=== PATIENT | female | born 2000 | race Caucasian/White ===

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

== ENCOUNTER 2022-01-07 00:56 | Emergency (ER) | payer MEDICAID, SELFPAY ==
[2022-01-07 00:58] VITALS: BP 147/97; PULSE 88; RESP 18; TEMP 36.8; O2SAT 99; BMI 47.0
--- NOTE | 2022-01-07 01:28 | HMH.EDSKAF ---
ED Disposition Clinical Impression: Cellulitis Qualifiers: Site of cellulitis: extremity Site of cellulitis of extremity: axilla Laterality: right Qualified Code(s): L03.111 - Cellulitis of right axilla Disposition: Home, Self-Care Condition on Discharge: Good Instructions: DI for Cellulitis -- Adult Additional Instructions: use meds and see pcp for follow up Prescriptions: Minocycline HCl [Minocycline HCl 100mg Tab*] 100 mg PO BID #20 tab Transmission Status: Pending to [facility] #[id number] Referrals: Melo Bhagat MD [Primary Care Provider] - - Critical Care Critical Care Time: No Attestation: On 01/07/22, the high probability of a clinically significant, sudden or life threatening deterioration of the following system(s) required my full and direct attention, intervention and personal management. The time I documented below is in addition to time spent performing reported procedures but includes the following listed in this critical care notation. Medical Decision Making - Medical Records Medical records reviewed: Yes: I reviewed the patient's medical records. - Sukumar Inquiry Pt receiving controlled substance: No Vital Signs: 01/07/22 00:58 Temperature 98.2 F Temperature Source Oral Pulse Rate [Left Radial] 88 Respiratory Rate 18 Blood Pressure [Right Arm] 147/97 H Blood Pressure Mean [Right Arm] 113 Blood Pressure Source [Right Arm] Automatic Cuff Blood Pressure Position [Right Arm] Sitting 02 Sat by Pulse Oximetry 99 Oxygen Delivery Method Room Air - Lab Data Lab results reviewed: Yes: I reviewed the patient's lab results. Lab Results 01/07/22 01:20: WBC 12.8, RBC 4.99, Hgb 13.6, Hct 41.1, MCV 82.2, MCH 27.2, MCHC 33.1, RDW 15.2, Plt Count 379, MPV 8.1, Neut % (Auto) 64.2, Lymph % (Auto) 28.0, [place] % (Auto) 4.3, Eos % (Auto) 2.4, Baso % (Auto) 1.0, Neut # (Auto) 8.2 H, Lymph # (Auto) 3.6, [place] # (Auto) 0.6, Eos # (Auto) 0.3, Baso # (Auto) 0.1, ESR 15 01/07/22 01:20: Urine HCG, Qual Negative 01/07/22 01:20: Sodium 139, Potassium 3.8, Chloride 102, Carbon Dioxide 26, Anion Gap 14.8, BUN 14, Creatinine 0.60, Estimated Creat Clear 130, Estimated GFR 129, Est GFR ( Amer) 156, Glucose 100, Calcium 9.5, Total Bilirubin 0.4, AST 26, ALT 24, Alkaline Phosphatase 105, C-Reactive Protein 22.4 H, Total Protein 7.7, Albumin 4.5, Globulin 3.2, Albumin/Globulin Ratio 1.4 Result diagrams: 01/07/22 01:20 01/07/22 01:20 Orders (Tests/Meds): ED MEDICATIONS Generic Name Dose Route Start Last Admin Trade Name Freq PRN Reason Stop Dose Admin Clindamycin Phosphate 900 mg/ 106 mls @ 100 mls/hr 01/07/22 01:38 01/07/22 01:41 Sodium Chloride IV 01/07/22 02:41 100 mls/hr ONCE ONE Administration ORDERS Category Date Time Status C-Reactive Protein Stat Lab 01/07/22 01:20 Results Comprehensive Metabolic Panel Stat Lab 01/07/22 01:20 Results Procalcitonin Stat Lab 01/07/22 01:20 Results Medical Decision Narrative: has cellulitis and hx of mrsa Skin/Abscess/FB HPI - General Chief complaint: Skin/Abscess/Foreign Body Stated complaint: Knot under right arm hurting Time Seen by Provider: 01/07/22 01:28 Mode of Arrival: Ambulatory Source of Information: Patient, Medical Record Limitations: No Limitations Description of Symptoms (Recalled from ER Triage Doc. by RN): KNOT UNDER RIGHT ARM. PT STATES SHE WAS TREATED 1 MONTH AGO FOR SAME THING. IT RESOLVED AND HAS NOW RETURNED. - History of Present Illness HPI narrative: rt axilla has tender area but no drainage - hx of same in 11/20 and was mrsa - MD complaint: abscess/boil Onset (ago): day(s) Tetanus up to date: yes Location: RUE Severity: moderate Associated symptoms: denies other symptoms Treatments prior to arrival: none - Related Data Previous Rx's Medication Instructions Recorded Minocycline HCl [Minocycline HCl 100 mg PO BID #20 tab 01/07/22 100mg Tab*] Allergies Allergy/AdvRea
--- NOTE | 2022-01-07 01:30 | PC.NURSE ---
URINE COLLECTED AND SENT TO LAB
[2022-01-07 01:31] LABS: Basophils # 0.1 K/mm3 (0-0.2); Eosinophils # 0.3 K/mm3 (0.0-0.4); Eosinophils % 2.4 % (0.1-12.0); Hematocrit 41.1 % (37.0-47.0); Hemoglobin 13.6 g/dL (12.2-16.2); Lymphocytes # 3.6 K/mm3 (0.7-4.5); Mean Corpuscular HGB Conc 33.1 g/dL (31.8-35.4); Mean Corpuscular Hemoglobin 27.2 pg (27.0-31.2); Mean Corpuscular Volume 82.2 fl (81-99); Mean Platelet Volume 8.1 fl (7.4-10.4); Monocytes # 0.6 K/mm3 (0.1-1.0); Monocytes % 4.3 % (1.7-9.3); Neutrophils # 8.2 K/mm3 (1.8-7.8); Neutrophils % 64.2 % (37.0-80.0); Platelet Count 379 K/mm3 (142-424); Red Blood Count 4.99 M/mm3 (4.20-5.40); Red Cell Distribution Width 15.2 % (11.5-17.5); White Blood Count 12.8 K/mm3 (4.5-13.0)
[2022-01-07 01:35] LABS: Urine Pregnancy, HCG Qual. Negative (Negative)
[2022-01-07 01:43] LABS: Alanine Aminotransferase 24 U/L (12-78); Albumin Level 4.5 g/dl (3.5-5.0); Albumin/Globulin Ratio 1.4 (1.1-1.8); Alkaline Phosphatase 105 U/L (38-126); Anion Gap 14.8 mEq/L (5-15); Aspartate Amino Transferase 26 U/L (14-36); Bilirubin,Total 0.4 mg/dl (0.2-1.3); Blood Urea Nitrogen 14 mg/dl (7-17); Calcium 9.5 mg/dl (8.4-10.2); Carbon Dioxide 26 mmol/L (22.0-30.0); Chloride 102 mmol/L (98-107); Creatinine Clearance Estimated 130 mL/min (50-200); Estimated Glomerular Filt Rate 129 ml/min (>60); GFR (African American) 156 ML/MIN (>60); Globulin 3.2 g/dL (1.3-3.2); Glucose 100 mg/dl (74-100); Potassium 3.8 mmoL/L (3.5-5.1); Sodium 139 mmol/L (136-145); Total Protein,Serum 7.7 g/dl (6.3-8.2)
[2022-01-07 02:01] LABS: Erythrocyte Sedimentation Rate 15 mm/hr (0-20)
[2022-01-07 02:02] LABS: C-Reactive Protein 22.4 mg/L (0-4)
[2022-01-07 02:16] LABS: Procalcitonin 0.057 ng/mL (0.0-2.0)
[2022-01-07 02:23] VITALS: BP 139/81; PULSE 81; RESP 18; TEMP 36.8; O2SAT 99
[2022-01-07 02:31] VITALS: BP 143/76; PULSE 78; RESP 16; TEMP 36.6; O2SAT 99
== END 2022-01-07 02:45 | disposition home or self-care (01) ==
PROVIDERS: Emergency Provider Emergency Medicine; PCP Pediatrics
DX: L03.111 Cellulitis of right axilla (principal); J45.909 Unspecified asthma, uncomplicated
CPT/HCPCS: 80053; 81025; 84145; 85025; 85651; 86140; 96365; 99284

== ENCOUNTER 2022-01-14 16:03 | Emergency (ER) | payer MEDICAID, SELFPAY ==
--- NOTE | 2022-01-14 16:23 | HMH.EDUTC ---
[facility] [place] [facility] [place] Clinical Impression: Gastroenteritis Disposition: Home, Self-Care Condition on Discharge: Good Instructions: Viral Gastroenteritis, DI for Viral Gastroenteritis -- Adult, Ondansetron Additional Instructions: Drink plenty of fluids. Take tylenol or ibuprofen for pain or fever. Take the medications as directed. Follow up with your regular doctor. GO TO THE ER FOR ANY WORSENING SYMPTOMS Prescriptions: Ondansetron [Zofran 4mg ODT] 4 mg PO Q8HP PRN #20 tab PRN Reason: Nausea Transmission Status: Received by [facility] #[id number] Referrals: Melo Bhagat MD [Primary Care Provider] - Forms: Work/School Release Time of Disposition: 17:32 Medical Decision Making - Medical Records Medical records reviewed: No: I reviewed the patient's medical records. - Sukumar Inquiry Pt receiving controlled substance: No Vital Signs: 01/14/22 16:24 01/14/22 17:37 Temperature 97.9 F 97.9 F Temperature Source Oral Pulse Rate 95 H Pulse Rate [Left Radial] 111 H Respiratory Rate 16 16 Blood Pressure 135/80 Blood Pressure [Right Arm] 146/91 H Blood Pressure Mean [Right Arm] 109 02 Sat by Pulse Oximetry 96 [facility] [place] [facility] [place]PI - General Stated complaint: stomach,V&D Time Seen by Provider: 01/14/22 16:23 - History of Present Illness Provider Complaint: She states that she has had n/d for the past 1 days. She has not vomited, but she has had nausea and felt like she was going to. She denies any abdominal pain. - Related Data Previous Rx's Medication Instructions Recorded Minocycline HCl [Minocycline HCl 100 mg PO BID #20 tab 01/07/22 100mg Tab*] Ondansetron [Zofran 4mg ODT] 4 mg PO Q8HP PRN #20 tab 01/14/22 Allergies Allergy/AdvReac Type Severity Reaction Status Date / Time No Known Allergies Allergy Verified 01/14/22 16:27 [facility] History - Hepatitis A Screen Attestation statement:: This patient has been screened for Hepatitis A risk factors. I have reviewed the patient's past medical history: Yes Medical History: Reports:: Asthma Denies:: Cancer, Diabetes Mellitus Type 1, Diabetes Mellitus Type 2, MRSA, Seizures Other Medical History: Denies: Blood Transfusion Reaction Laterality Cases: Bilateral: Myringotomy (Ear Tubes) Other Surgeries: Yes: Other Amputation: No Fractures: Yes (FOOT) Comment: pilonidal cyst - Social History Smoking Status: Never smoker Alcohol Intake: never Substance Use Type: denies use Occupational Status: other Housing: house Household Members: family Family Hx:: No significant family history ROS Obtained: Yes All systems reviewed & no additional complaints - Constitutional Constitutional: Reports chills, Denies fever(s), Reports poor appetite, Reports malaise - Eyes Eyes: Denies eye discharge - ENT Ears, Nose, Mouth, and Throat: Denies dizziness, Denies otalgia, Denies sore throat - Cardiovascular Cardiovascular: Denies chest pain - Respiratory Respiratory: Denies chest congestion, Denies cough - Gastrointestinal Gastrointestingal: Reports: cramping, diarrhea, nausea. Denies: abdominal pain, constipation, vomiting - Musculoskeletal Musculoskeletal: Denies joint pain - Integumentary/Breasts Skin/Breast: Denies rash Physical Exam - General General appearance: alert, in no apparent distress - Head Head exam: atraumatic, normocephalic, normal inspection - Eye Eye exam: Present: normal appearance, PERRL, EOMI - ENT ENT exam: Present: normal exam, normal oropharynx, mucous membranes moist, TM's normal bilaterally, normal external ear exam - Neck Neck exam: Present: normal inspection, full ROM, trachea midline. Absent: meningismus, lymphadenopathy - Chest Chest inspection: Present: normal inspection, symmetric chest wall rise. Absent: tenderness - Respiratory Respiratory exam: Present: normal lung sounds bilaterally. Absent: respiratory distress - Cardiovascular Cardiovascul
[2022-01-14 16:24] VITALS: BP 146/91; PULSE 111; RESP 16; TEMP 36.6; O2SAT 96; BMI 38.2
[2022-01-14 17:37] VITALS: BP 135/80; PULSE 95; RESP 16; TEMP 36.6
== END 2022-01-14 17:37 | disposition home or self-care (01) ==
PROVIDERS: Emergency Provider Nurse Practitioner Family; PCP Pediatrics
DX: A08.4 Viral intestinal infection, unspecified (principal); J45.909 Unspecified asthma, uncomplicated; Z79.51 Long term (current) use of inhaled steroids
CPT/HCPCS: 99213; G0463

== ENCOUNTER 2022-02-04 12:28 | Emergency (ER) | payer MEDICAID, SELFPAY ==
[2022-02-04 12:30] VITALS: BP 138/83; PULSE 86; RESP 19; TEMP 36.8; O2SAT 98; BMI 39.9
--- NOTE | 2022-02-04 12:40 | HMH.EDUTC ---
[facility] [place] Disposition Clinical Impression: Otitis media Qualifiers: Otitis media type: unspecified Laterality: left Qualified Code(s): H66.92 - Otitis media, unspecified, left ear Disposition: Home, Self-Care Condition on Discharge: Good Instructions: Sinusitis, DI for Ear Pain-Adult Additional Instructions: *Monitor Temp, Over the counter Motrin or Tylenol as directed/as needed Tylenol every 4 hours and Motrin every 6 hours (as long as your family doctor has told you that you can take it) for fever or pain. and straight to ER if unable to lower temp less than 101.0 after medication given *Warm salt water gargles may help to soothe the throat *Throat Lozenges *Warm fluids like tea with honey may help to soothe the throat *Sleep elevated *Humidifier/Vaporizer Take medication as prescribed Return if needed Follow up IMMEDIATELY for new or worsening symptoms or no Noticeable improvement over the next 48-72 hours. 911 for difficulty breathing or swallowing Prescriptions: Albuterol Sulfate [Proventil-HFA 90mcg/puff Inh] 1 - 2 puffs IH Q6HP PRN #1 each PRN Reason: Shortness Of Breath Transmission Status: Pending to [facility] # Amoxicillin/Potassium Clav [Amox-Clav 875-125 mg Tablet] 1 tab PO BID #20 tab Transmission Status: Pending to [facility] # methylPREDNISolone [Medrol 4mg tab] 4 mg PO DIRECTED #21 tab Transmission Status: Pending to [facility] # Referrals: Melo Bhagat MD [Primary Care Provider] - As needed Time of Disposition: 12:52 Medical Decision Making - Sukumar Inquiry Pt receiving controlled substance: No Sukumar was queried for this patient: No Vital Signs: 02/04/22 12:30 Temperature 98.2 F Temperature Source Oral Pulse Rate [Right Brachial] 86 Respiratory Rate 19 Blood Pressure [Right Arm] 138/83 Blood Pressure Mean [Right Arm] 101 Blood Pressure Source [Right Arm] Automatic Cuff Blood Pressure Position [Right Arm] Sitting 02 Sat by Pulse Oximetry 98 Oxygen Delivery Method Room Air Medical Decision Narrative: Patient denies states that she just got off her period [facility] [place] HPI - General Stated complaint: chest congestion, cough, ear pain Time Seen by Provider: 02/04/22 12:40 Mode of Arrival: Ambulatory Source of Information: Patient Limitations: No Limitations Description of Symptoms (Recalled from Triage Doc. by RN): PATIENT C/O BILATERAL EAR PAIN, CHEST CONGESTION, AND WET COUGH WITH GREEN MUCOUS X 2 DAYS HEENT Symptoms (Recalled from RN notes): Yes Resp Symptoms (Recalled from RN notes): Yes Skin Symptoms (Recalled from RN notes): No MS Symptoms (Recalled from RN notes): No Functional Status (Recalled from RN notes): WNL - History of Present Illness Provider Complaint: Patient states that she has been having pain and pressure in both ears, sinus congestion and pressure with driangae in the back of her throat and chest congestion States that at times she is coughing up some mucous but thinks it is from her sinus drainage State that she also is out of her rescue inhaler wanting to see if she could get one - Related Data Previous Rx's Medication Instructions Recorded Albuterol Sulfate [Proventil-HFA 1 - 2 puffs IH Q6HP PRN #1 each 02/04/22 90mcg/puff Inh] Amoxicillin/Potassium Clav 1 tab PO BID #20 tab 02/04/22 [Amox-Clav 875-125 mg Tablet] methylPREDNISolone [Medrol 4mg 4 mg PO DIRECTED #21 tab 02/04/22 tab] Allergies Allergy/AdvReac Type Severity Reaction Status Date / Time No Known Allergies Allergy Verified 01/14/22 16:27 - Worker's Comp Is this a Worker's Comp case?: No [facility] History - Hepatitis A Screen Attestation statement:: This patient has been screened for Hepatitis A risk factors. I have reviewed the patient's past medical history: Yes Medical History: Reports:: Asthma Denies:: Cancer, Diabetes Mellitus Type 1, Diabetes Mellitus Type 2, MRSA, Seizures
[2022-02-04 12:50] VITALS: BP 138/83; PULSE 86; RESP 19; TEMP 36.8; O2SAT 98
== END 2022-02-04 12:55 | disposition home or self-care (01) ==
PROVIDERS: Emergency Provider Nurse Practitioner; PCP Pediatrics
DX: H66.92 Otitis media, unspecified, left ear (principal)
CPT/HCPCS: 99212; G0463

== ENCOUNTER 2022-02-13 03:28 | Emergency (ER) | payer MEDICAID, SELFPAY ==
--- NOTE | 2022-02-13 03:27 | ECG_ITS ---
APPROVED REPORT Exam: Resting ECG HR:137 bpm ECG Measurements Heart Rate 137 AXES PA 136 P 76 QRSd 86 QRS 85 QT 285 T 56 QTc 365 Conclusion SINUS TACHYCARDIA ABNORMAL RHYTHM ECG UNCONFIRMED REPORT Electronically signed by : Nicko Dawson MD 02/15/2022 18:04:09
[2022-02-13 03:29] VITALS: BP 149/92; PULSE 127; RESP 18; TEMP 37.9; O2SAT 96; BMI 41.5
[2022-02-13 03:34] VITALS: BMI 41.5
--- NOTE | 2022-02-13 03:35 | XR_ITS ---
PROCEDURE INFORMATION: Exam: XR Chest Exam date and time: 02/13/2022 3:36 AM Age: 21 years old Clinical indication: Shortness of breath; Patient HX: Exsposure to covid; Additional info: SOA TECHNIQUE: Imaging protocol: XR of the chest. Views: 2 views. COMPARISON: No relevant prior studies available. FINDINGS: Lungs: No focal airspace disease. Pleural spaces: Unremarkable. No pleural effusion. No pneumothorax. Heart/Mediastinum: Cardiomediastinal silhouette is within normal limits. Bones/joints: Unremarkable. IMPRESSION: No acute cardiopulmonary abnormality.
[2022-02-13 03:43] LABS: Basophils # 0.2 K/mm3 (0-0.2); Basophils % 1.6 % (0.1-2.0); Eosinophils # 0.2 K/mm3 (0.0-0.4); Eosinophils % 2.1 % (0.1-12.0); Hematocrit 38.6 % (37.0-47.0); Hemoglobin 13.2 g/dL (12.2-16.2); Lymphocytes # 2.1 K/mm3 (0.7-4.5); Lymphocytes % 19.3 % (10-50); Mean Corpuscular HGB Conc 34.1 g/dL (31.8-35.4); Mean Corpuscular Hemoglobin 27.3 pg (27.0-31.2); Mean Corpuscular Volume 80.1 fl (81-99); Mean Platelet Volume 8.3 fl (7.4-10.4); Monocytes # 0.7 K/mm3 (0.1-1.0); Monocytes % 6.1 % (1.7-9.3); Neutrophils # 7.8 K/mm3 (1.8-7.8); Neutrophils % 70.9 % (37.0-80.0); Platelet Count 320 K/mm3 (142-424); Red Blood Count 4.81 M/mm3 (4.20-5.40); Red Cell Distribution Width 15.7 % (11.5-17.5)
[2022-02-13 03:48] LABS: Alanine Aminotransferase 35 U/L (12-78); Albumin Level 4.1 g/dl (3.5-5.0); Albumin/Globulin Ratio 1.3 (1.1-1.8); Alkaline Phosphatase 89 U/L (38-126); Aspartate Amino Transferase 40 U/L (14-36); Bilirubin,Total 0.3 mg/dl (0.2-1.3); Blood Urea Nitrogen 8 mg/dl (7-17); Calcium 9.3 mg/dl (8.4-10.2); Carbon Dioxide 24 mmol/L (22.0-30.0); Chloride 102 mmol/L (98-107); Creatinine Clearance Estimated 136 mL/min (50-200); Estimated Glomerular Filt Rate 129 ml/min (>60); GFR (African American) 156 ML/MIN (>60); Globulin 3.2 g/dL (1.3-3.2); Glucose 94 mg/dl (74-100); Sodium 132 mmol/L (136-145); Total Protein,Serum 7.3 g/dl (6.3-8.2)
[2022-02-13 03:51] LABS: Influenza A, PCR Not Detected (NotDetected); Influenza B, PCR Not Detected (NotDetected); Microscopic, Urine URINE MICROSCOPIC (MICROSCOPIC)
[2022-02-13 03:52] VITALS: BP 118/75; PULSE 127; O2SAT 95
[2022-02-13 03:54] LABS: C-Reactive Protein 28.5 mg/L (0-4)
[2022-02-13 03:56] LABS: Appearance,Urine CLEAR (Clear); Bilirubin,Urine Negative (Negative); Blood, Urine Negative (Negative); Color,Urine YELLOW (Yellow); Glucose,Urine (UA) Negative (Negative); Ketones,Urine Negative (Negative); Leukocyte Esterase,Urine Negative (Negative); Nitrate,Urine Negative (Negative); Protein,Urine Negative (Negative); Specific Gravity, Urine 1.025 (1.005-1.030); Urobilinogen,Urine 0.2 EU/dl (0.2)
[2022-02-13 03:57] LABS: Urine Pregnancy, HCG Qual. Negative (Negative)
[2022-02-13 04:07] LABS: Procalcitonin 0.172 ng/mL (0.0-2.0)
[2022-02-13 04:13] LABS: Coronavirus 19, PCR Detected (NotDetected)
[2022-02-13 04:24] LABS: Bacteria,Urine 1+ /lpf; Calcium Oxalate Crystals,Urine 2+ /lpf; Mucus,Urine 1+ /lpf; WBC,Urine Occasional #/hpf (0-3)
[2022-02-13 04:30] VITALS: BP 108/70; PULSE 107; O2SAT 96
[2022-02-13 04:43] LABS: Erythrocyte Sedimentation Rate 16 mm/hr (0-20)
--- NOTE | 2022-02-13 05:17 | HMH.EDURI ---
ED Disposition Clinical Impression: COVID-19 Disposition: Home, Self-Care Condition on Discharge: Good Instructions: DI for COVID-19 (Suspected or Confirmed ) Additional Instructions: fluids and call pcp for follow up Referrals: Melo Haskins [Primary Care Provider] - - Critical Care Critical Care Time: No Attestation: On 02/13/22, the high probability of a clinically significant, sudden or life threatening deterioration of the following system(s) required my full and direct attention, intervention and personal management. The time I documented below is in addition to time spent performing reported procedures but includes the following listed in this critical care notation. Medical Decision Making - Medical Records Medical records reviewed: Yes: I reviewed the patient's medical records. - Sukumar Inquiry Pt receiving controlled substance: No Vital Signs: 02/13/22 03:29 02/13/22 03:52 02/13/22 04:30 Temperature 100.3 F H Temperature Source Oral Pulse Rate 127 H 107 H Pulse Rate [Apical] 127 H Respiratory Rate 18 Blood Pressure 118/75 108/70 L Blood Pressure [Right Arm] 149/92 H Blood Pressure Mean [Right Arm] 111 Blood Pressure Source [Right Arm] Automatic Cuff Blood Pressure Position [Right Arm] Sitting 02 Sat by Pulse Oximetry 96 95 96 Oxygen Delivery Method Room Air Room Air Room Air - Lab Data Lab results reviewed: Yes: I reviewed the patient's lab results. Lab Results 02/13/22 03:31: WBC 11.0, RBC 4.81, Hgb 13.2, Hct 38.6, MCV 80.1 L, MCH 27.3, MCHC 34.1, RDW 15.7, Plt Count 320, MPV 8.3, Neut % (Auto) 70.9, Lymph % (Auto) 19.3, [place] % (Auto) 6.1, Eos % (Auto) 2.1, Baso % (Auto) 1.6, Neut # (Auto) 7.8, Lymph # (Auto) 2.1, [place] # (Auto) 0.7, Eos # (Auto) 0.2, Baso # (Auto) 0.2, ESR 16 02/13/22 03:31: Sodium 132 L, Potassium 4.0, Chloride 102, Carbon Dioxide 24, Anion Gap 10.0, BUN 8, Creatinine 0.60, Estimated Creat Clear 136, Estimated GFR 129, Est GFR ( Amer) 156, Glucose 94, Calcium 9.3, Total Bilirubin 0.3, AST 40 H, ALT 35, Alkaline Phosphatase 89, C-Reactive Protein 28.5 H, Total Protein 7.3, Albumin 4.1, Globulin 3.2, Albumin/Globulin Ratio 1.3, Procalcitonin 0.172 02/13/22 03:34: Urine Color Yellow, Urine Appearance Clear, Urine pH 6.0, Ur Specific [place] 1.025, Urine Protein Negative, Urine Glucose (UA) Negative, Urine Ketones Negative, Urine Blood Negative, Urine Nitrate Negative, Urine Bilirubin Negative, Urine Urobilinogen 0.2, Ur Leukocyte Esterase Negative, Urine WBC Occasional, Calcium Oxalate Crystal 2+, Urine Bacteria 1+, Urine Mucus 1+ 02/13/22 03:34: Urine HCG, Qual Negative 02/13/22 03:34: SARS-CoV-2 (PCR) Detected A, Influenza A Untype (PCR) Not detected, Influenza Type B (PCR) Not detected Result diagrams: 02/13/22 03:31 02/13/22 03:31 Orders (Tests/Meds): ED MEDICATIONS Generic Name Dose Route Start Last Admin Trade Name Freq PRN Reason Stop Dose Admin Sodium Chloride 1,000 mls @ 999 mls/hr 02/13/22 03:45 02/13/22 04:04 Sod Chlor 0.9% 1000ml Bag IV 02/13/22 04:45 999 mls/hr .Q1H1M ASHLEY Administration Discontinued Medications Generic Name Dose Route Start Last Admin Trade Name Freq PRN Reason Stop Dose Admin Acetaminophen 1,000 mg 02/13/22 03:41 02/13/22 04:05 Acetaminophen 500mg Tab PO 02/13/22 03:42 1,000 mg ONCE ONE Administration Ketorolac Tromethamine 30 mg 02/13/22 03:35 02/13/22 04:03 Ketorolac 30mg/Ml Vial IV 02/13/22 03:36 30 mg ONCE ONE Administration Methylprednisolone Sodium Succinate 125 mg 02/13/22 03:35 02/13/22 04:03 Methylprednisolone Sod Succ 125mg Vial IV 02/13/22 03:36 125 mg ONCE ONE Administration ORDERS Category Date Time Status Chest XR 2 view (NOT portable) [XR chest 2V] Stat Exams 02/13/22 03:35 Taken - Radiology Data #1 Image(s): Chest Image Reviewed: Yes I reviewed the patient's radiology image Preliminary Findings: Normal/NAD Medical D
[2022-02-13 05:28] VITALS: BP 110/73; PULSE 93; RESP 18; TEMP 37.2; O2SAT 96
== END 2022-02-13 05:39 | disposition home or self-care (01) ==
PROVIDERS: Emergency Provider Emergency Medicine; PCP Pediatrics
DX: U07.1 COVID-19 (principal); J45.909 Unspecified asthma, uncomplicated
CPT/HCPCS: 71046; 80053; 81001; 81025; 84145; 85025; 85651; 86140; 93005; 96361; 96374; 96375; 99284; C9803; U0003; U0005

== ENCOUNTER 2022-04-29 12:41 | Emergency (ER) | payer MEDICAID, SELFPAY ==
[2022-04-29 14:50] VITALS: BP 140/86; PULSE 87; RESP 18; TEMP 36.9; O2SAT 97; BMI 41.5
[2022-04-29 14:59] LABS: UTC Strep Screen (Rapid) Negative (Negative)
--- NOTE | 2022-04-29 15:14 | EXP.UTC ---
Discharge Plan Disposition Patient Disposition: Home, Self-Care Condition: Good Prescriptions Prescriptions: New methocarbamol 500 mg tablet 500 mg PO Q12 PRN (Reason: muscle spasm) Qty: 15 0RF methylprednisolone [Medrol (Ignacio)] 4 mg tablets,dose pack 4 mg PO DAILY Qty: 21 0RF cefdinir 300 mg capsule 300 mg PO BID Qty: 20 0RF No Action albuterol sulfate 200 PUFF HFA aerosol inhaler 1 - 2 puffs IH Q6HP PRN (Reason: Shortness Of Breath) Qty: 1 0RF Referrals Follow up/Referrals: Melo Haskins [Primary Care Provider] - See instructions Clinical Impressions Clinical Impression: Otitis media, Muscle spasm Stand Alone Forms Stand Alone Forms: Work/School Release Discharge ED Provider: Princess Poe [facility] General Stated complaint: Sore throat, drainage, middle back pain Mode of Arrival: Ambulatory Source of Information: Patient Limitations: No Limitations Time Seen by Provider: 04/29/22 15:00 Description of Symptoms (Recalled from Triage Doc. by RN): PATIENT C/O SORE THROAT, BACK PAIN, AND COUGH X 4 DAYS HEENT Symptoms (Recalled from RN notes): Yes Resp Symptoms (Recalled from RN notes): Yes Skin Symptoms (Recalled from RN notes): No MS Symptoms (Recalled from RN notes): No Functional Status (Recalled from RN notes): WNL History of Present Illness Provider Complaint: Patient states that she has been having sore throat, pain in her left ear, pain on and off in her middle back worse with coughing States that she isnt sure if she may have pulled something or not for the last 4-5 days States that today her back was feeling a little better Denies loss of control of bowel or bladder Related Data Previous Rx's Medication Instructions Recorded albuterol sulfate 90 mcg/actuation 1 - 2 puffs inhalation Q6HP PRN 02/04/22 aerosol inhaler Shortness Of Breath #1 ea cefdinir 300 mg capsule 300 mg PO BID #20 caps 04/29/22 methocarbamol 500 mg tablet 500 mg PO Q12 PRN muscle spasm #15 04/29/22 tabs methylprednisolone 4 mg tablets in 4 mg PO DAILY #21 tabs 04/29/22 a dose pack (Medrol (Ignacio)) Allergies Allergy/AdvReac Type Severity Reaction Status Date / Time No Known Allergies Allergy Verified 01/14/22 16:27 Worker's Comp Is this a Worker's Comp case?: No [facility] Medical History (Updated 04/29/22 @ 15:22 by Princess Poe APRN) Asthma Surgical History (Updated 04/29/22 @ 15:07 by Kath Briceño RN) S/P tympanic tube insertion Social History (Updated 04/29/22 @ 15:08 by Kath Briceño, ALIVIA) Smoking Status: Never smoker second hand exposure: Yes alcohol intake: never substance use type: denies use current occupational status: other Travel in the last 8 weeks: None household members: family housing: house current occupational exposures/hazards: Yes ROS Obtained: Yes All systems reviewed & no additional complaints except as documented and Yes Systems reviewed as appropriate & no additional complaints except as documented Constitutional Constitutional: Reports system reviewed and no additional complaints, except as documented, Reports as per HPI and Reports headache(s) ENT Ears, Nose, Mouth, and Throat: Reports system reviewed and no additional complaints, except as documented, Reports otalgia, Reports headache(s), Reports nasal congestion, Reports nasal discharge and Reports sore throat Cardiovascular Cardiovascular: Reports system reviewed and no additional complaints, except as documented and Reports as per HPI Respiratory Respiratory: Reports system reviewed and no additional complaints, except as documented, Reports as per HPI and Reports cough Gastrointestinal Gastrointestingal: Reports system reviewed and no additional complaints, except as documented and as per HPI Genitourinary Female Genitourinary: Reports system reviewed and no additional complaints, except as documented, Denies dysuria, Denies urinary frequency and Denies urinary urgency Mu
[2022-04-29 15:25] VITALS: BP 140/86; PULSE 87; RESP 18; TEMP 36.9; O2SAT 97
== END 2022-04-29 15:30 | disposition home or self-care (01) ==
PROVIDERS: Emergency Provider Nurse Practitioner; PCP Pediatrics
DX: J02.9 Acute pharyngitis, unspecified (principal); R05.9 Cough, unspecified; M54.89 Other dorsalgia
CPT/HCPCS: 87880; 99212; G0463

== ENCOUNTER 2022-06-24 13:40 | Emergency (ER) | payer MEDICAID, SELFPAY ==
[2022-06-24 13:41] VITALS: BP 129/86; PULSE 76; RESP 18; TEMP 36.8; O2SAT 98; BMI 36.6
--- NOTE | 2022-06-24 15:14 | EXP.UTC ---
Discharge Plan Disposition Patient Disposition: Home, Self-Care Condition: Good Prescriptions Prescriptions: New methylprednisolone [Medrol (Ignacio)] 4 mg tablets,dose pack See Rx Instructions .Route .COMPLEX 6 Days Qty: 21 0RF Rx Instructions: taper pack; yhsxymesarchtza-rdhmprfhk-SV [Bromfed DM] 2-30-10 mg/5 mL Syrup 10 ml PO Q4H PRN (Reason: Cough) Qty: 200 0RF amoxicillin-pot clavulanate 875-125 mg Tablet 1 tab PO Q12H Qty: 20 0RF No Action albuterol sulfate 200 PUFF HFA aerosol inhaler 1 - 2 puffs IH Q6HP PRN (Reason: Shortness Of Breath) Qty: 1 0RF methocarbamol 500 mg tablet 500 mg PO Q12 PRN (Reason: muscle spasm) Qty: 15 0RF methylprednisolone [Medrol (Ignacio)] 4 mg tablets,dose pack 4 mg PO DAILY Qty: 21 0RF cefdinir 300 mg capsule 300 mg PO BID Qty: 20 0RF Referrals Follow up/Referrals: Melo Bhagat MD [Primary Care Provider] - See instructions Activity Restrictions/Add. Instructions Additional Instructions/Restrictions: *Monitor Temp, Over the counter Motrin or Tylenol as directed/as needed Tylenol every 4 hours and Motrin every 6 hours (as long as your family doctor has told you that you can take it) for fever or pain. and straight to ER if unable to lower temp less than 101.0 after medication given *Warm salt water gargles may help to soothe the throat *Throat Lozenges? *Warm fluids like tea with honey may help to soothe the throat? *Sleep elevated *Humidifier/Vaporizer *Flonase 2 sprays in each nostril daily but be aware that it may take 2-3 days before you notice improvement *Bromfed may cause drowsiness. Know how it effects you (your child) before driving, caring for small child, or sending your child to school. Not other antihistamines/allergy medications while taking bromfed Follow up IMMEDIATELY for new or worsening symptoms or no Noticeable improvement over the next 48-72 hours. 911 for difficulty breathing or swallowing Clinical Impressions Clinical Impression: Otitis media Stand Alone Forms Stand Alone Forms: Work/School Release Instructions Patient Instructions: Middle Ear Infection, Sore Throat Discharge ED Provider: Princess Poe [facility] [place] General Stated complaint: cough congestion Time Seen by Provider: 06/24/22 15:14 History of Present Illness Provider Complaint: Patient states that she has been having pain and pressure in her ears worse in her left, sinus congestion and drainage, scratchy throat and feels like it is trying to move into her chest States that today she was still feeling bad so she came in to get checked Related Data Previous Rx's Medication Instructions Recorded albuterol sulfate 90 mcg/actuation 1 - 2 puffs inhalation Q6HP PRN 02/04/22 aerosol inhaler Shortness Of Breath #1 ea cefdinir 300 mg capsule 300 mg PO BID #20 caps 04/29/22 methocarbamol 500 mg tablet 500 mg PO Q12 PRN muscle spasm #15 04/29/22 tabs methylprednisolone 4 mg tablets in 4 mg PO DAILY #21 tabs 04/29/22 a dose pack (Medrol (Ignacio)) amoxicillin 875 mg-potassium 1 tab PO Q12H #20 tabs 06/24/22 clavulanate 125 mg tablet mvhxxlotgoudtag-tpgeuhwbtbwapml-LA 10 ml PO Q4H PRN Cough #200 mL 06/24/22 2 mg-30 mg-10 mg/5 mL oral syrup (Bromfed DM) methylprednisolone 4 mg tablets in See Rx Instructions .Route 06/24/22 a dose pack (Medrol (Ignacio)) .COMPLEX 6 days #21 tabs Allergies Allergy/AdvReac Type Severity Reaction Status Date / Time No Known Allergies Allergy Verified 01/14/22 16:27 [facility] Medical History (Updated 06/24/22 @ 15:21 by Princess Poe [employer]) Asthma Surgical History (Updated 04/29/22 @ 15:07 by Kath Briceño RN) S/P tympanic tube insertion Social History (Updated 04/29/22 @ 15:08 by Kath Briceño RN) Smoking Status: Never smoker second hand exposure: Yes alcohol intake: never substance use type: denies use current occupational status: other Travel i
[2022-06-24 15:28] VITALS: BP 129/86; PULSE 76; RESP 18; TEMP 36.8; O2SAT 98
== END 2022-06-24 15:29 | disposition home or self-care (01) ==
PROVIDERS: Emergency Provider Nurse Practitioner; PCP Pediatrics
DX: H66.93 Otitis media, unspecified, bilateral (principal); R06.02 Shortness of breath; R05.9 Cough, unspecified; J02.9 Acute pharyngitis, unspecified; M62.838 Other muscle spasm; J45.909 Unspecified asthma, uncomplicated
CPT/HCPCS: 99213; G0463

== ENCOUNTER 2022-07-29 12:47 | Emergency (ER) | payer MEDICAID, SELFPAY ==
--- NOTE | 2022-07-29 14:37 | EXP.UTC ---
Discharge Plan Disposition Patient Disposition: Home, Self-Care Condition: Good Prescriptions Prescriptions: New oseltamivir [Tamiflu] 75 mg capsule 75 mg PO BID Qty: 10 0RF xitbtvsgmqiodbl-vjgxskhds-PS [Bromfed DM] 2-30-10 mg/5 mL Syrup 5 ml PO Q6H PRN (Reason: Cough) Qty: 240 0RF ondansetron 4 mg Tablet,Disintegrating 4 mg PO Q8H PRN (Reason: Nausea) Qty: 9 0RF Discontinued methylprednisolone [Medrol (Ignacio)] 4 mg tablets,dose pack See Rx Instructions .Route .COMPLEX 6 Days Qty: 21 0RF Rx Instructions: taper pack; fprsisexdlzxems-znlbdoxaj-IO [Bromfed DM] 2-30-10 mg/5 mL Syrup 10 ml PO Q4H PRN (Reason: Cough) Qty: 200 0RF amoxicillin-pot clavulanate 875-125 mg Tablet 1 tab PO Q12H Qty: 20 0RF methocarbamol 500 mg tablet 500 mg PO Q12 PRN (Reason: muscle spasm) Qty: 15 0RF methylprednisolone [Medrol (Ignacio)] 4 mg tablets,dose pack 4 mg PO DAILY Qty: 21 0RF cefdinir 300 mg capsule 300 mg PO BID Qty: 20 0RF No Action albuterol sulfate 200 PUFF HFA aerosol inhaler 1 - 2 puffs IH Q6HP PRN (Reason: Shortness Of Breath) Qty: 1 0RF Referrals Follow up/Referrals: Melo Bhagat MD [Primary Care Provider] - See instructions Activity Restrictions/Add. Instructions Additional Instructions/Restrictions: Drink plenty of fluids. Take tylenol or ibuprofen for pain or fever. Take the medications as directed. Follow up with your regular doctor. GO TO THE ER FOR ANY WORSENING SYMPTOMS Clinical Impressions Clinical Impression: Viral syndrome, Exposure to influenza Stand Alone Forms Stand Alone Forms: Work/School Release Instructions Patient Instructions: DI for Influenza -- Adult, Oseltamivir Discharge ED Provider: Donny Upton [facility] General Stated complaint: Congestion,cough Time Seen by Provider: 07/29/22 14:37 History of Present Illness Provider Complaint: She states that she has been been around several family members that tested positive for influenza a recently. She started to feel bad, have body aches and chills yesterday. Related Data Previous Rx's Medication Instructions Recorded albuterol sulfate 90 mcg/actuation 1 - 2 puffs inhalation Q6HP PRN 02/04/22 aerosol inhaler Shortness Of Breath #1 ea vkiuphzjtaqdkmn-zgfiwowxlozfeif-YA 5 ml PO Q6H PRN Cough #240 mL 07/29/22 2 mg-30 mg-10 mg/5 mL oral syrup (Bromfed DM) ondansetron 4 mg disintegrating 4 mg PO Q8H PRN Nausea #9 tabs 07/29/22 tablet oseltamivir 75 mg capsule (Tamiflu) 75 mg PO BID #10 caps 07/29/22 Allergies Allergy/AdvReac Type Severity Reaction Status Date / Time No Known Allergies Allergy Verified 07/29/22 15:00 [facility] Medical History Asthma Surgical History S/P tympanic tube insertion Social History Smoking Status: Never smoker second hand exposure: Yes alcohol intake: never substance use type: denies use current occupational status: other Travel in the last 8 weeks: None household members: family housing: house current occupational exposures/hazards: Yes ROS Obtained: Yes All systems reviewed & no additional complaints except as documented Constitutional Constitutional: Reports chills and Reports fever(s) Eyes Eyes: Denies eye discharge ENT Ears, Nose, Mouth, and Throat: Reports as per HPI Cardiovascular Cardiovascular: Denies chest pain Respiratory Respiratory: Denies chest congestion and Reports cough Gastrointestinal Gastrointestingal: Reports nausea; Denies abdominal pain, constipation, cramping, diarrhea or vomiting Musculoskeletal Musculoskeletal: Denies arthralgias Integumentary/Breasts Skin/Breast: Denies rash Neurologic Neurologic: Denies paresthesias Physical Exam General General appearance: alert and in no apparent distress Head H
[2022-07-29 14:56] VITALS: BP 148/99; PULSE 89; RESP 18; TEMP 36.9; O2SAT 99; BMI 36.6
[2022-07-29 15:03] LABS: Adenovirus,PCR Not Detected (NotDetected); Bordetella Pertussis Not Detected (NotDetected); Chlamydophila Pneumoniae, PCR Not Detected (NotDetected); Coronavirus 19, PCR Not Detected (NotDetected); Coronavirus 229E Not Detected (NotDetected); Coronavirus NL63 Not Detected (NotDetected); Coronavirus OC43 Not Detected (NotDetected); Coronovirus HKU1,PCR Not Detected (NotDetected); Human Metapneumovirus Not Detected (NotDetected); Influenza A, PCR Not Detected (NotDetected); Influenza AH1, 2009 Not Detected (NotDetected); Influenza AH1, PCR Not Detected (NotDetected); Influenza AH3,PCR Not Detected (NotDetected); Influenza B, PCR Not Detected (NotDetected); Mycoplasma Pneumoniae, PCR Not Detected (NotDetected); Parainfluenza 1, PCR Not Detected (NotDetected); Parainfluenza 2, PCR Not Detected (NotDetected); Parainfluenza 3, PCR Not Detected (NotDetected); Parainfluenza 4, PCR Not Detected (NotDetected); Respiratory Syncytial Virus Not Detected (NotDetected)
[2022-07-29 15:06] LABS: UTC Influenza A Antigen Negative (Negative); UTC Influenza B Antigen Negative (Negative); UTC Strep Screen (Rapid) Negative (Negative)
[2022-07-29 15:21] VITALS: BP 148/99; PULSE 89; RESP 18; TEMP 36.9
[2022-07-30 10:40] LABS: Rhinovirus/Enterovirus Detected (NotDetected)
== END 2022-07-29 15:21 | disposition home or self-care (01) ==
PROVIDERS: Emergency Provider Nurse Practitioner Family; PCP Pediatrics
DX: R05.9 Cough, unspecified (principal); R09.89 Other specified symptoms and signs involving the circulatory and respiratory systems; B34.1 Enterovirus infection, unspecified; Z20.828 Contact with and (suspected) exposure to other viral communicable diseases
CPT/HCPCS: 87581; 87632; 87798; 87804; 87880; 99212; C9803; G0463; U0003; U0005

== ENCOUNTER 2022-08-13 04:39 | Emergency (ER) | payer MEDICAID, SELFPAY ==
[2022-08-13] VITALS (7 sets, daily range): BP systolic 116–145; BP diastolic 78–105; PULSE 102–133; RESP 17–18; TEMP 36.9; O2SAT 96–100; BMI 36.6
--- NOTE | 2022-08-13 04:56 | CT_ITS ---
PROCEDURE INFORMATION: Exam: CT Abdomen And Pelvis With Contrast Exam date and time: 08/13/2022 5:34 AM Age: 21 years old Clinical indication: Nausea and vomiting; Additional info: N/v/d TECHNIQUE: Imaging protocol: Computed tomography of the abdomen and pelvis with contrast. Radiation optimization: All CT scans at this facility use at least one of these dose optimization techniques: automated exposure control; mA and/or kV adjustment per patient size (includes targeted exams where dose is matched to clinical indication); or iterative reconstruction. Contrast material: ISOVUE; Contrast volume: 75 ml; Contrast route: IV; COMPARISON: CR XR CHEST 2V 02/13/2022 3:36 AM FINDINGS: Liver: Hepatic steatosis and hepatomegaly. Gallbladder and bile ducts: Normal. No calcified stones. No ductal dilation. Pancreas: Normal. No ductal dilation. Spleen: Normal. No splenomegaly. Adrenal glands: Normal. No mass. Kidneys and ureters: Normal. No hydronephrosis. Stomach and bowel: Unremarkable. No obstruction. No mucosal thickening. Appendix: No evidence of appendicitis. Intraperitoneal space: Unremarkable. No free air. No significant fluid collection. Vasculature: Unremarkable. No abdominal aortic aneurysm. Lymph nodes: Unremarkable. No enlarged lymph nodes. Urinary bladder: Unremarkable as visualized. Reproductive: Unremarkable as visualized. Bones/joints: Unremarkable. No acute fracture. Soft tissues: Unremarkable. IMPRESSION: No acute findings.
[2022-08-13 05:02] LABS: Coronavirus 19, PCR Not Detected (NotDetected); Influenza A, PCR Not Detected (NotDetected); Influenza B, PCR Not Detected (NotDetected)
[2022-08-13 05:18] LABS: Microscopic, Urine URINE MICROSCOPIC (MICROSCOPIC)
[2022-08-13 05:20] LABS: Blood, Urine Negative (Negative); Color,Urine YELLOW (Yellow); Glucose,Urine (UA) Negative (Negative); Ketones,Urine Negative (Negative); Leukocyte Esterase,Urine Negative (Negative); Nitrate,Urine POSITIVE (Negative); PH,Urine 5.5 (5.0-8.5); Protein,Urine 1+ (Negative); Specific Gravity, Urine >= 1.030 (1.005-1.030); Urobilinogen,Urine 0.2 EU/dl (0.2)
[2022-08-13 05:23] LABS: Basophils # 0.1 K/mm3 (0-0.2); Basophils % 0.4 % (0.1-2.0); Eosinophils # 0.4 K/mm3 (0.0-0.4); Eosinophils % 2.3 % (0.1-12.0); Hematocrit 46.1 % (37.0-47.0); Hemoglobin 14.9 g/dL (12.2-16.2); Lymphocytes # 1.4 K/mm3 (0.7-4.5); Lymphocytes % 8.5 % (10-50); Mean Corpuscular HGB Conc 32.4 g/dL (31.8-35.4); Mean Corpuscular Volume 83.5 fl (81-99); Monocytes # 0.6 K/mm3 (0.1-1.0); Monocytes % 3.7 % (1.7-9.3); Neutrophils # 13.6 K/mm3 (1.8-7.8); Neutrophils % 85.1 % (37.0-80.0); Platelet Count 388 K/mm3 (142-424); Red Blood Count 5.53 M/mm3 (4.20-5.40)
[2022-08-13 05:25] LABS: Urine Pregnancy, HCG Qual. Negative (Negative)
[2022-08-13 05:26] LABS: Appearance,Urine Turbid (Clear); Bilirubin,Urine Negative (Negative); Chloride 102 mmol/L (98-107); MANUAL DIFFERENTIAL MANUAL DIFFERENTIAL (MANUAL DIFF); Potassium 4.4 mmoL/L (3.5-5.1); Sodium 139 mmol/L (136-145)
[2022-08-13 05:28] LABS: Amylase 63 U/L (30-110); Blood Urea Nitrogen 14 mg/dl (7-17); Creatinine Clearance Estimated 204 mL/min (50-200); Estimated Glomerular Filt Rate 108 ml/min (>60); GFR (African American) 130 ML/MIN (>60)
[2022-08-13 05:29] LABS: Alanine Aminotransferase 34 U/L (12-78); Albumin Level 4.5 g/dl (3.5-5.0); Albumin/Globulin Ratio 1.5 (1.1-1.8); Alkaline Phosphatase 92 U/L (38-126); Anion Gap 15.4 mEq/L (5-15); Aspartate Amino Transferase 31 U/L (14-36); Bilirubin,Total 0.4 mg/dl (0.2-1.3); Calcium 9.4 mg/dl (8.4-10.2); Carbon Dioxide 26 mmol/L (22.0-30.0); Glucose 133 mg/dl (74-100); Lipase 32 U/L (23-300); Total Protein,Serum 7.5 g/dl (6.3-8.2)
[2022-08-13 05:36] LABS: Amorphous Sediment,Urine 3+ /lpf; Bacteria,Urine 2+ /lpf; Lactic Acid 2.2 mmol/L (0.7-2.1)
--- NOTE | 2022-08-13 05:37 | HMH.EDNVD ---
Discharge Plan Disposition Patient Disposition: Home, Self-Care Prescriptions Prescriptions: New ondansetron HCl 4 mg Tablet 4 mg PO Q8H PRN (Reason: Nausea) Qty: 20 0RF No Action cetirizine 10 mg tablet 10 mg PO DAILY fluticasone propionate 50 mcg/actuation spray,suspension 2 spray INTRANASAL DAILY Referrals Follow up/Referrals: Melo Bhagat MD [Primary Care Provider] - See instructions Clinical Impressions Clinical Impression: Gastroenteritis Instructions Patient Instructions: DI for Nausea -- Adult Discharge ED Provider: Howard Hernández Nausea/Vomiting/Diarrhea HPI General Chief complaint: Nausea/Vomiting/Diarrhea Stated complaint: V/D Time Seen by Provider: 08/13/22 05:00 Mode of Arrival: Family Vehicle Source of Information: Patient and Medical Record Limitations: No Limitations Description of Symptoms (Recalled from ER Triage Doc. by RN): Pt c/o nausea, vomiting, and diarrhea that began @ 2300 (08/12). States she had allergy testing completed in the am and not sure if this is because of it . Denies any SOA, cough, fever, or chills. Denies any pain and ABD tenderness. History of Present Illness HPI Narrative: onset of vomiting and diarrhea this pm w/o fever or known contact MD complaint: vomiting and diarrhea Onset (ago): hour(s) Associated Abdominal Pain: Yes Location of pain: diffuse Associated symptoms: denies other symptoms Related Data Home Medications Medication Instructions Recorded Confirmed cetirizine 10 mg tablet 10 mg PO DAILY Allergy symptoms 08/13/22 08/13/22 fluticasone propionate 50 2 spray intranasal DAILY Allergy 08/13/22 08/13/22 mcg/actuation nasal symptoms spray,suspension Previous Rx's Medication Instructions Recorded ondansetron HCl 4 mg tablet 4 mg PO Q8H PRN Nausea #20 tabs 08/13/22 Allergies Allergy/AdvReac Type Severity Reaction Status Date / Time No Known Allergies Allergy Verified 07/29/22 15:00 [facility] Disclaimer: The information contained in this section may have been updated after the patient was seen, as this information can be updated by other users. Medical History Asthma Surgical History S/P tympanic tube insertion Social History Smoking Status: Never smoker second hand exposure: Yes alcohol intake: never substance use type: denies use current occupational status: other Travel in the last 8 weeks: None household members: family housing: house current occupational exposures/hazards: Yes ROS Obtained: Yes All systems reviewed & no additional complaints except as documented Physical Exam General General appearance: alert Head Head exam: normocephalic Eye Eye exam: Present PERRL and EOMI ENT ENT exam: Present mucous membranes moist Neck Neck exam: Present trachea midline Respiratory Respiratory exam: Absent respiratory distress Cardiovascular Cardiovascular exam: Present regular rate Abdominal Exam Abdominal exam: Present soft Extremities Exam Extremities exam: Present full ROM Neurological Exam Neurological exam: Present alert, oriented X3 and CN II-XII intact Skin Skin exam: Absent rash Medical Decision Making Medical Records Medical records reviewed: Yes I reviewed the patient's medical records. Sukumar Inquiry Pt receiving controlled substance: No Vital Signs: 08/13/22 04:40 08/13/22 05:27 08/13/22 05:30 Temperature 98.5 F Temperature Source Oral Pulse Rate 124 H 121 H Pulse Rate [Right] 133 H Respiratory Rate 17 Blood Pressure 116/78 120/84 Blood Pressure [Right Arm] 145/105 H Blood Pressure Mean Blood Pressure Mean [Right Arm] 118 Blood Pressure Source [Right Arm] Automatic Cuff 02 Sat by Pulse Oximetry 100 96 97 Oxygen Delivery Method Room Air 08/13/22 05:45 08/13/22
[2022-08-13 06:07] LABS: Eosinophils % 2 % (0-3); Lymphocytes % 13 % (10-50); Neutrophils % 85 % (42-76); Total Cells Counted 100
[2022-08-13 06:08] LABS: Platelet Estimate Normal; Stomatocytes 1+
--- NOTE | 2022-08-13 06:41 | PC.NURSE ---
called radiology to check on expected wait times for ct reads, they are contacting with [email or web address]
[2022-08-13 09:15] LABS: Reflex Lactic Add Lactic Reflex
== END 2022-08-13 07:45 | disposition home or self-care (01) ==
PROVIDERS: Emergency Provider Emergency Medicine; PCP Pediatrics
DX: K52.9 Noninfective gastroenteritis and colitis, unspecified (principal); Z79.899 Other long term (current) drug therapy; J45.909 Unspecified asthma, uncomplicated
CPT/HCPCS: 74177; 80053; 81001; 81025; 82150; 83605; 83690; 85007; 85025; 87086; 96365; 96366; 96375; 99284; C9803; J2405; Q9967; U0003; U0005

== ENCOUNTER 2022-08-27 08:29 | Emergency (ER) | payer MEDICAID, SELFPAY ==
--- NOTE | 2022-08-27 09:08 | EXP.UTC ---
Discharge Plan Disposition Patient Disposition: Home, Self-Care Condition: Good Prescriptions Prescriptions: No Action cetirizine 10 mg tablet 10 mg PO DAILY fluticasone propionate 50 mcg/actuation spray,suspension 2 spray INTRANASAL DAILY ondansetron HCl 4 mg Tablet 4 mg PO Q8H PRN (Reason: Nausea) Qty: 20 0RF Referrals Follow up/Referrals: Melo Bhagat MD [Primary Care Provider] - See instructions Activity Restrictions/Add. Instructions Additional Instructions/Restrictions: Drink plenty of fluids. Take tylenol for pain or fever. Take the medications as directed. Follow up with your regular doctor. GO TO THE ER FOR ANY WORSENING SYMPTOMS CAll YOUR WARRANTY MANAGER PHYSICIAN AND GET AN APPOINTMENT. Clinical Impressions Clinical Impression: , Acute viral syndrome Stand Alone Forms Stand Alone Forms: Work/School Release Instructions Patient Instructions: Diet, DI for Viral Syndrome Discharge ED Provider: Donny Upton [facility] [place] HPI General Stated complaint: Flu exposure, head congestion, test Time Seen by Provider: 08/27/22 09:08 History of Present Illness Provider Complaint: She states that for the past 2 days she has had chills, body aches, sinus congestion and a scratchy sore throat. Also, her period is late. Her last period period began on Jul 09. Related Data Home Medications Medication Instructions Recorded Confirmed cetirizine 10 mg tablet 10 mg PO DAILY Allergy symptoms 08/13/22 08/13/22 fluticasone propionate 50 2 spray intranasal DAILY Allergy 08/13/22 08/13/22 mcg/actuation nasal symptoms spray,suspension Previous Rx's Medication Instructions Recorded ondansetron HCl 4 mg tablet 4 mg PO Q8H PRN Nausea #20 tabs 08/13/22 Allergies Allergy/AdvReac Type Severity Reaction Status Date / Time No Known Allergies Allergy Verified 08/27/22 09:50 [facility] Disclaimer: The information contained in this section may have been updated after the patient was seen, as this information can be updated by other users. Medical History Asthma Surgical History S/P tympanic tube insertion Social History Smoking Status: Never smoker second hand exposure: Yes alcohol intake: never substance use type: denies use current occupational status: other Travel in the last 8 weeks: None household members: family housing: house current occupational exposures/hazards: Yes ROS Obtained: Yes All systems reviewed & no additional complaints except as documented Constitutional Constitutional: Reports poor appetite Eyes Eyes: Reports system reviewed and no additional complaints, except as documented ENT Ears, Nose, Mouth, and Throat: Reports as per HPI Cardiovascular Cardiovascular: Reports system reviewed and no additional complaints, except as documented and Denies chest pain Respiratory Respiratory: Denies shortness of breath, Denies chest congestion, Reports cough, Denies stridor and Denies wheezing Gastrointestinal Gastrointestingal: Reports system reviewed and no additional complaints, except as documented; Denies abdominal pain, diarrhea or vomiting Musculoskeletal Musculoskeletal: Reports system reviewed and no additional complaints, except as documented and Denies arthralgias Integumentary/Breasts Skin/Breast: Reports system reviewed and no additional complaints, except as documented and Denies rash Neurologic Neurologic: Denies paresthesias Allergic/Immunologic Allergic/Immunologic: Denies wheezing Physical Exam General General appearance: alert and in no apparent distress Eye Eye exam: Present normal appearance, PERRL and EOMI ENT ENT exam: Present mucous membranes moist and normal external ear exam Expanded ENT Exam External ear exam: Present daquan
[2022-08-27 09:46] VITALS: BP 140/86; PULSE 88; RESP 17; TEMP 37.1; O2SAT 99; BMI 36.6
[2022-08-27 09:53] LABS: UTC Influenza A Antigen Negative (Negative); UTC Influenza B Antigen Negative (Negative)
[2022-08-27 09:53] LABS: UTC Pregnancy Test, Urine Positive (Negative)
[2022-08-27 10:04] VITALS: BP 140/86; PULSE 88; RESP 17; TEMP 37.1
[2022-08-27 10:12] LABS: Adenovirus,PCR Not Detected (NotDetected); Bordetella Pertussis Not Detected (NotDetected); Chlamydophila Pneumoniae, PCR Not Detected (NotDetected); Coronavirus 19, PCR Not Detected (NotDetected); Coronavirus 229E Not Detected (NotDetected); Coronavirus NL63 Not Detected (NotDetected); Coronavirus OC43 Not Detected (NotDetected); Coronovirus HKU1,PCR Not Detected (NotDetected); Human Metapneumovirus Not Detected (NotDetected); Influenza A, PCR Not Detected (NotDetected); Influenza AH1, 2009 Not Detected (NotDetected); Influenza AH1, PCR Not Detected (NotDetected); Influenza AH3,PCR Not Detected (NotDetected); Influenza B, PCR Not Detected (NotDetected); Mycoplasma Pneumoniae, PCR Not Detected (NotDetected); Parainfluenza 1, PCR Not Detected (NotDetected); Parainfluenza 2, PCR Not Detected (NotDetected); Parainfluenza 3, PCR Not Detected (NotDetected); Parainfluenza 4, PCR Not Detected (NotDetected); Respiratory Syncytial Virus Not Detected (NotDetected); Rhinovirus/Enterovirus Not Detected (NotDetected)
[2022-08-27 10:38] LABS: HCG,Quantitative 112 mIU/ml (0-5.42)
== END 2022-08-27 10:20 | disposition home or self-care (01) ==
PROVIDERS: Emergency Provider Nurse Practitioner Family; PCP Pediatrics
DX: B34.9 Viral infection, unspecified (principal)
CPT/HCPCS: 81025; 84702; 87581; 87632; 87798; 87804; 99212; C9803; G0463; U0003; U0005

== ENCOUNTER 2022-10-12 11:16 | Emergency (ER) | payer OTHER, MEDICAID, SELFPAY ==
[2022-10-12 11:40] VITALS: BP 144/83; PULSE 92; RESP 20; TEMP 37.1; O2SAT 95; BMI 39.4
--- NOTE | 2022-10-12 11:40 | EXP.UTC ---
Discharge Plan Disposition Patient Disposition: Home, Self-Care Condition: Good Prescriptions Prescriptions: New amoxicillin [amoxicillin] 500 mg tablet 500 mg PO TID 10 Days Qty: 30 0RF Referrals Follow up/Referrals: Melo Bhagat MD [Primary Care Provider] - See instructions Activity Restrictions/Add. Instructions Additional Instructions/Restrictions: Drink plenty of fluids. Take tylenol or ibuprofen for pain or fever. Take the medications as directed. Follow up with your regular doctor. GO TO THE ER FOR ANY WORSENING SYMPTOMS Clinical Impressions Clinical Impression: Otitis media, Pharyngitis Stand Alone Forms Stand Alone Forms: Work/School Release Instructions Patient Instructions: Middle Ear Infection Discharge ED Provider: Donny Upton [facility] [place] HPI General Stated complaint: cough,runny nose,sore throat,ear pain Time Seen by Provider: 10/12/22 11:40 History of Present Illness Provider Complaint: She states that for the past 3 days she has had left ear pain, sinus congestion, and a sore throat. Related Data Previous Rx's Medication Instructions Recorded amoxicillin 500 mg tablet 500 mg PO TID 10 days #30 tabs 10/12/22 Allergies Allergy/AdvReac Type Severity Reaction Status Date / Time No Known Allergies Allergy Verified 08/27/22 09:50 [facility] Disclaimer: The information contained in this section may have been updated after the patient was seen, as this information can be updated by other users. Medical History Asthma Surgical History S/P tympanic tube insertion Social History Smoking Status: Never smoker second hand exposure: Yes alcohol intake: never substance use type: denies use current occupational status: other Travel in the last 8 weeks: None household members: family housing: house current occupational exposures/hazards: Yes ROS Obtained: Yes All systems reviewed & no additional complaints except as documented Constitutional Constitutional: Denies chills, Reports fever(s) and Reports poor appetite Eyes Eyes: Denies eye discharge ENT Ears, Nose, Mouth, and Throat: Denies ear discharge, Reports otalgia, Denies hearing loss, Denies sinus pain and Reports sore throat Cardiovascular Cardiovascular: Denies chest pain and Denies dyspnea Respiratory Respiratory: Denies chest congestion, Reports cough and Denies dyspnea Gastrointestinal Gastrointestingal: Denies abdominal pain, diarrhea, nausea or vomiting Musculoskeletal Musculoskeletal: Denies arthralgias Integumentary/Breasts Skin/Breast: Denies rash Physical Exam General General appearance: alert and in no apparent distress Head Head exam: atraumatic, normocephalic and normal inspection Eye Eye exam: Present normal appearance, PERRL and EOMI ENT ENT exam: Present mucous membranes moist and normal external ear exam Expanded ENT Exam TM/Canal exam: Bilateral TM: erythema and bulging Nose exam: Absent sinus tenderness Mouth exam: Present normal external inspection; Absent drooling Teeth exam: Present normal inspection Throat exam: Present tonsillar erythema, tonsillomegaly and tonsillar exudate Neck Neck exam: Present normal inspection, full ROM and trachea midline; Absent tenderness, meningismus or lymphadenopathy Chest Chest inspection: Present normal inspection and symmetric chest wall rise; Absent tenderness Respiratory Respiratory exam: Present normal lung sounds bilaterally; Absent respiratory distress, wheezes or stridor Cardiovascular Cardiovascular exam: Present regular rate and normal rhythm; Absent systolic murmur or diastolic murmur Abdominal Exam Abdominal exam: Present soft and normal bowel sounds; Absent distention, tenderness, guarding, rebound or rigidity Extremities Exam Extremities exam: Present norm
[2022-10-12 11:51] LABS: UTC Strep Screen (Rapid) Negative (Negative)
[2022-10-12 12:46] VITALS: BP 144/83; PULSE 92; RESP 20; TEMP 37.1; O2SAT 95
== END 2022-10-12 12:47 | disposition home or self-care (01) ==
PROVIDERS: Emergency Provider Nurse Practitioner Family; PCP Pediatrics
DX: H66.90 Otitis media, unspecified, unspecified ear (principal); J02.9 Acute pharyngitis, unspecified
CPT/HCPCS: 87880; 99212; 99213; G0463

== ENCOUNTER 2022-12-09 15:15 | Emergency (ER) | payer OTHER, MEDICAID, SELFPAY ==
[2022-12-09 15:20] VITALS: BP 121/59; PULSE 103; RESP 22; TEMP 36.7; O2SAT 99; BMI 38.2
--- NOTE | 2022-12-09 15:37 | EXP.UTC ---
Discharge Plan Disposition Patient Disposition: Home, Self-Care Condition: Good Prescriptions Prescriptions: New amoxicillin-pot clavulanate 875-125 mg Tablet 1 tab PO Q12H Qty: 14 0RF fluticasone propionate [Flonase Allergy Relief] 50 mcg/actuation spray,suspension 1 spray intranasal DAILY Qty: 16 0RF Rx Instructions: administer into each nostril No Action labetalol 200 mg tablet 200 mg PO DAILY Referrals Follow up/Referrals: Melo Bhagat MD [Primary Care Provider] - See instructions Activity Restrictions/Add. Instructions Additional Instructions/Restrictions: Check with pharmacy before taking any medications to make sure that they are safe for use during *Monitor Temp, Over the counter Motrin or Tylenol as directed/as needed Tylenol every 4 hours and Motrin every 6 hours (as long as your family doctor has told you that you can take it) for fever or pain. and straight to ER if unable to lower temp less than 101.0 after medication given *Warm salt water gargles may help to soothe the throat *Throat Lozenges? *Warm fluids like tea with honey may help to soothe the throat? *Sleep elevated *Humidifier/Vaporizer *Flonase 2 sprays in each nostril daily but be aware that it may take 2-3 days before you notice improvement Follow up IMMEDIATELY for new or worsening symptoms or no Noticeable improvement over the next 48-72 hours. 911 for difficulty breathing or swallowing Clinical Impressions Clinical Impression: Sinusitis Instructions Patient Instructions: DI for Sinusitis, Sinusitis Discharge ED Provider: Princess Poe [facility] General Stated complaint: congestion Mode of Arrival: Ambulatory Source of Information: Patient Limitations: No Limitations Time Seen by Provider: 12/09/22 15:37 Description of Symptoms (Recalled from Triage Doc. 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 States that today she was feeling worse so she came in to get checked Related Data Home Medications Medication Instructions Recorded Confirmed labetalol 200 mg tablet 200 mg PO DAILY Hypertension 12/09/22 12/09/22 Previous Rx's Medication Instructions Recorded amoxicillin 875 mg-potassium 1 tab PO Q12H #14 tabs 12/09/22 clavulanate 125 mg tablet fluticasone propionate 50 1 spray intranasal DAILY #16 grams 12/09/22 mcg/actuation nasal spray,suspension (Flonase Allergy Relief) Allergies Allergy/AdvReac Type Severity Reaction Status Date / Time No Known Allergies Allergy Verified 08/27/22 09:50 Worker's Comp Is this a Worker's Comp case?: No [facility] Disclaimer: The information contained in this section may have been updated after the patient was seen, as this information can be updated by other users. Medical History Asthma Surgical History S/P tympanic tube insertion Social History Smoking Status: Never smoker second hand exposure: Yes alcohol intake: never substance use type: denies use current occupational status: other Travel in the last 8 weeks: None household members: family housing: house current occupational exposures/hazards: Yes ROS Obtained: Yes All systems reviewed & no additional complaints except as documented and Yes Systems reviewed as appropriate & no additional complaints except as documented Constitutional Constitutional: Reports
[2022-12-09 15:48] VITALS: BP 121/59; PULSE 103; RESP 22; TEMP 36.7; O2SAT 99
== END 2022-12-09 16:00 | disposition home or self-care (01) ==
PROVIDERS: Emergency Provider Nurse Practitioner; PCP Pediatrics
DX: O99.512 Diseases of the respiratory system complicating pregnancy, second trimester (principal); J01.90 Acute sinusitis, unspecified; Z3A.20 20 weeks gestation of pregnancy
CPT/HCPCS: 99212; 99214; G0463

== ENCOUNTER 2023-05-13 10:30 | Emergency (ER) | payer OTHER, MEDICAID, SELFPAY ==
[2023-05-13 10:45] VITALS: BP 154/96; PULSE 89; RESP 22; TEMP 36.9; O2SAT 97; BMI 38.2
[2023-05-13 11:11] LABS: UTC Strep Screen (Rapid) Negative (Negative)
--- NOTE | 2023-05-13 11:21 | EXP.UTC ---
Discharge Plan Disposition Patient Disposition: Home, Self-Care Condition: Good Prescriptions Prescriptions: New amoxicillin 875 mg tablet 875 mg PO Q12H Qty: 20 0RF fluticasone propionate [Flonase Allergy Relief] 50 mcg/actuation spray,suspension 1 - 2 spray intranasal DAILY Qty: 16 0RF Rx Instructions: administer into each nostril No Action labetalol 200 mg tablet 200 mg PO DAILY Referrals Follow up/Referrals: Melo Bhagat MD [Primary Care Provider] - See instructions Activity Restrictions/Add. Instructions Additional Instructions/Restrictions: *Monitor Temp, Over the counter Motrin or Tylenol as directed/as needed Tylenol every 4 hours and Motrin every 6 hours (as long as your family doctor has told you that you can take it) for fever or pain. and straight to ER if unable to lower temp less than 101.0 after medication given *Warm salt water gargles may help to soothe the throat *Throat Lozenges? *Warm fluids like tea with honey may help to soothe the throat? *Sleep elevated *Humidifier/Vaporizer Your throat swab was sent for culture. Those results are typically sent to your primary care. Be sure to follow up in 2-3 days with your family doctor/primary care physician if no improvement so they can review those result and treat if necessary. If you don?t have a primary care doctor, I recommend you get one but in the mean time, you will have to return to a walk in clinic Follow up IMMEDIATELY for new or worsening symptoms or no Noticeable improvement over the next 48-72 hours. 911 for difficulty breathing or swallowing Clinical Impressions Clinical Impression: Otitis media Qualifiers: Otitis media type: unspecified Laterality: left Qualified Code(s): H66.92 - Otitis media, unspecified, left ear Instructions Patient Instructions: Middle Ear Infection, Ear Infections (Alternative Therapy) Discharge ED Provider: Princess Poe [facility] General Stated complaint: runny nose,cough,itchy throat,earache Mode of Arrival: Ambulatory Source of Information: Patient Limitations: No Limitations Time Seen by Provider: 05/13/23 11:21 Description of Symptoms (Recalled from Triage Doc. by RN): PATIENT C/O COUGH, RUNNY NOSE, ITCHY THROAT AND EAR PAIN X 2 DAYS HEENT Symptoms (Recalled from RN notes): Yes Resp Symptoms (Recalled from RN notes): Yes Skin Symptoms (Recalled from RN notes): No MS Symptoms (Recalled from RN notes): No Functional Status (Recalled from RN notes): WNL History of Present Illness Provider Complaint: Patient states that she has been having left ear pain and pressure, sinus congestion, sore scratchy throat State that today her ear was hurting worse and she started having sinus pressure so she came in to get checked Related Data Home Medications Medication Instructions Recorded Confirmed labetalol 200 mg tablet 200 mg PO DAILY Hypertension 12/09/22 05/13/23 Previous Rx's Medication Instructions Recorded amoxicillin 875 mg tablet 875 mg PO Q12H #20 tabs 05/13/23 fluticasone propionate 50 1 - 2 spray intranasal DAILY #16 05/13/23 mcg/actuation nasal grams spray,suspension (Flonase Allergy Relief) Allergies Allergy/AdvReac Type Severity Reaction Status Date / Time No Known Allergies Allergy Verified 08/27/22 09:50 Worker's Comp Is this a Worker's Comp case?: No [facility] Disclaimer: The information contained in this section may have been updated after the patient was seen, as this information can be updated by other users. Medical History Asthma Surgical History S/P tympanic tube insertion Social History Smoking Status: Never smoker second hand exposure: Yes alcohol intake: never substance use type: denies use current occupational status: ot
[2023-05-13 11:26] VITALS: BP 154/96; PULSE 89; RESP 22; TEMP 36.9; O2SAT 97
== END 2023-05-13 11:35 | disposition home or self-care (01) ==
PROVIDERS: Emergency Provider Nurse Practitioner; PCP Pediatrics
DX: H66.92 Otitis media, unspecified, left ear (principal); J45.909 Unspecified asthma, uncomplicated
CPT/HCPCS: 87880; 99212; 99214; G0463

== ENCOUNTER 2023-06-11 13:50 | Emergency (ER) | payer OTHER, MEDICAID, SELFPAY ==
[2023-06-11 13:51] VITALS: BP 149/91; PULSE 107; RESP 18; TEMP 36.9; O2SAT 97; BMI 39.9
--- NOTE | 2023-06-11 14:28 | EXP.UTC ---
Discharge Plan Disposition Patient Disposition: Home, Self-Care Condition: Good Prescriptions Prescriptions: New azithromycin [azithromycin] 250 mg tablet 250 mg PO DIRECTED Qty: 6 0RF Rx Instructions: Take two (2) tablets on day #1, then one (1) tablet day #2 thru #5 No Action labetalol 200 mg tablet 200 mg PO BID Referrals Follow up/Referrals: Melo Haskins [Primary Care Provider] - See instructions Activity Restrictions/Add. Instructions Additional Instructions/Restrictions: Start antibiotic patient to take as ordered for a full length of time even if you feel better. Sinus infections do not get better overnight. It may take 2-3 days to notice much improvement so be sure to use conservative measures as discussed for symptoms. Flonase 1 spray each nostril daily to help with nasal congestion, sinus and ear pressure/information Increase fluids Humidifier/vaporizer as needed Tylenol and ibuprofen as needed for fever or pain. If symptoms do not improve or get worse return or be seen in the ER Follow-up with primary care this week if no improvement Clinical Impressions Clinical Impression: Sinusitis Qualifiers: Sinusitis location: maxillary Chronicity: acute Recurrence: non-recurrent Qualified Code(s): J01.00 - Acute maxillary sinusitis, unspecified Instructions Patient Instructions: DI for Sinusitis Discharge ED Provider: Barrie ([facility])Jose [facility] [place] HPI General Stated complaint: congestion, cough, sinus pressure, BARRY Mode of Arrival: Ambulatory Source of Information: Patient Limitations: No Limitations Time Seen by Provider: 06/11/23 14:29 Description of Symptoms (Recalled from Triage Doc. by RN): bilateral ear pain, and sinus pressure HEENT Symptoms (Recalled from RN notes): Yes Resp Symptoms (Recalled from RN notes): No Skin Symptoms (Recalled from RN notes): No MS Symptoms (Recalled from RN notes): No Functional Status (Recalled from RN notes): n/a History of Present Illness Provider Complaint: 22 yr old female presents for griselda ear pain, sinus pressure, green sinus drainage,sinus congestion, and barry for 2 days Related Data Home Medications Medication Instructions Recorded Confirmed labetalol 200 mg tablet 200 mg PO BID Hypertension 12/09/22 06/11/23 Previous Rx's Medication Instructions Recorded azithromycin 250 mg tablet 250 mg PO DIRECTED #6 tabs 06/11/23 Allergies Allergy/AdvReac Type Severity Reaction Status Date / Time No Known Allergies Allergy Verified 06/11/23 14:11 Worker's Comp Is this a Worker's Comp case?: No [facility] Disclaimer: The information contained in this section may have been updated after the patient was seen, as this information can be updated by other users. Medical History , [employer]) Asthma Surgical History , [employer]) S/P tympanic tube insertion Social History , [employer]) Smoking Status: Never smoker second hand exposure: Yes alcohol intake: never substance use type: denies use current occupational status: other Travel in the last 8 weeks: None household members: family housing: house current occupational exposures/hazards: Yes ROS Obtained: Yes All systems reviewed & no additional complaints except as documented Constitutional Constitutional: Reports system reviewed and no additional complaints, except as documented and Reports headache(s) Eyes Eyes: Reports system reviewed and no additional complaints, except as documented ENT Ears, Nose, Mouth, and Throat: Reports system reviewed and no additional complaints, except as documented, Reports as per HPI, Reports otalgia, Reports headache(s), Reports nasal congestion, Reports nasal discharge, Reports post nasal drip, Reports sinus pain and Reports sinus pressure Cardiovascular Cardiovascular: Reports system
[2023-06-11 14:36] VITALS: BP 149/91; PULSE 107; RESP 18; TEMP 36.9; O2SAT 97
== END 2023-06-11 14:36 | disposition home or self-care (01) ==
PROVIDERS: Emergency Provider Nurse Practitioner Family; PCP Pediatrics
DX: J01.00 Acute maxillary sinusitis, unspecified (principal); J45.909 Unspecified asthma, uncomplicated
CPT/HCPCS: 99212; 99214; G0463

== ENCOUNTER 2023-10-30 14:55 | Emergency (ER) | payer OTHER, MEDICAID, SELFPAY ==
--- NOTE | 2023-10-30 15:38 | EXP.UTC ---
Discharge Plan Disposition Patient Disposition: Home, Self-Care Condition: Good Prescriptions Prescriptions: New azithromycin [Zithromax] 250 mg tablet 250 mg PO UD DOSE PK Qty: 6 0RF Rx Instructions: Take two (2) tablets today, then one (1) tablet days #2 thru #5 methylprednisolone 4 mg Tablets,Dose Pack 4 mg PO DIRECTED 6 Days Qty: 21 0RF Rx Instructions: Take 1 pack as directed for 6 days sunpyyruulaggvz-btqrjozzl-[place] [Bromfed DM] 2-30-10 mg/5 mL Syrup 5 ml PO Q6H PRN (Reason: Cough) Qty: 240 0RF guaifenesin [Mucinex] 600 mg tablet extended release 12hr 600 - 1,200 mg PO BIDP PRN (Reason: Congestion) Qty: 30 0RF No Action labetalol 200 mg tablet 200 mg PO BID Referrals Follow up/Referrals: Melo Bhagat MD [Primary Care Provider] - See instructions Activity Restrictions/Add. Instructions Additional Instructions/Restrictions: Drink plenty of fluids. Take tylenol or ibuprofen for pain or fever. Take the medications as directed. Follow up with your regular doctor. GO TO THE ER FOR ANY WORSENING SYMPTOMS Clinical Impressions Clinical Impression: Sinusitis Instructions Patient Instructions: Sinusitis, DI for Sinusitis Discharge ED Provider: Donny Upton [facility] General Stated complaint: itchy throat, cough Time Seen by Provider: 10/30/23 15:31 History of Present Illness Provider Complaint: She states that for the past 1 week she has had sinus congestion, sinus drainage, bilateral ear pain, and a cough Related Data Home Medications Medication Instructions Recorded Confirmed labetalol 200 mg tablet 200 mg PO BID Hypertension 12/09/22 10/30/23 Previous Rx's Medication Instructions Recorded azithromycin 250 mg tablet 250 mg PO UD DOSE PK #6 tabs 10/30/23 (Zithromax) rjdeuqfgvtkepqd-wxjspkbqnkcuhvi-BZ 5 ml PO Q6H PRN Cough #240 mL 10/30/23 2 mg-30 mg-10 mg/5 mL oral syrup (Bromfed DM) guaifenesin 600 mg tablet, 600 - 1,200 mg PO BIDP PRN 10/30/23 extended release 12 hr (Mucinex) Congestion #30 tabs methylprednisolone 4 mg tablets in 4 mg PO DIRECTED 6 days #21 tabs 10/30/23 a dose pack Allergies Allergy/AdvReac Type Severity Reaction Status Date / Time No Known Allergies Allergy Verified 10/30/23 16:01 [facility] Disclaimer: The information contained in this section may have been updated after the patient was seen, as this information can be updated by other users. 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) S/P tympanic tube insertion Social History Smoking Status: Never smoker second hand exposure: Yes alcohol intake: never substance use type: denies use current occupational status: other Travel in the last 8 weeks: None household members: family housing: house current occupational exposures/hazards: Yes ROS Obtained: Yes All systems reviewed & no additional complaints except as documented Constitutional Constitutional: Reports poor appetite Eyes Eyes: Reports system reviewed and no additional complaints, except as documented ENT Ears, Nose, Mouth, and Throat: Reports as per HPI Cardiovascular Cardiovascular: Reports system reviewed and no additional complaints, except as documented and Denies chest pain Respiratory Respiratory: Denies shortness of breath, Denies chest congestion, Reports cough, Denies stridor and Denies wheezing Gastrointestinal Gastrointestingal: Reports system reviewed and no additional complaints, except as documented; Denies abdominal pain, diarrhea or vomiting Musculoskeletal Musculoskeletal: Reports system reviewed and no additional complaints, except as documented and Denies arthralgias Integumentary/Breasts Skin/Breast: Reports system reviewed and no additional complaints, except as documented and Denies rash Neurologic Neurologic: Denies paresthesias Allergic/Immunologic Allergic/Immunologic: Denies wheezing Physical Exam General General appearance: alert and in no apparent distress Eye Eye exam: Present normal appearance, PERRL and EOMI ENT ENT exam: Present mucous membranes moist and normal external ear exam Expanded ENT Exam External ear exam: Present normal external inspection TM/Canal exam: Bilateral TM: erythema and bulging Nose exam: Absent sinus tenderness Nasal speculum exam: Bilateral: normal Mouth exam: Present normal external inspection; Absent drooling Teeth exam: Present normal inspection Throat exam: Present tonsillar erythema and tonsillomegaly Neck Neck exam: Present normal inspection, full ROM and trachea midline; Absent tenderness, lymphadenopathy or thyromegaly Chest Chest inspection: Present normal inspection and symmetric chest wall rise; Absent tenderness or rash Respiratory Respiratory exam: Present normal lung sounds bilaterally; Absent respiratory distress, wheezes, stridor or accessory muscle use Cardiovascular Cardiovascular exam: Present regular rate, normal rhythm and normal heart sounds Abdominal Exam Abdominal exam: Present soft; Absent distention, tenderness, guarding, rebound or rigidity Extremities Exam Extremities exam: Present normal inspection, full ROM and normal capillary refill; Absent tenderness or calf tenderness Back Exam Back exam: Present normal inspection and full ROM; Absent tenderness Neurological Exam Neurological exam: Present alert and oriented X3 Psychiatric Psychiatric exam: Present normal affect and normal mood Skin Skin exam: Present warm, dry, intact and normal color Lymphatic Lymphatic Findings: no adenopathy Medical Decision Making Medical Records Medical records reviewed: No I reviewed the patient's medical records. Sukumar Inquiry Pt receiving controlled substance: No Lab Data Lab results reviewed: Yes I reviewed the patient's lab results.
[2023-10-30 15:40] VITALS: BP 152/93; PULSE 90; RESP 18; TEMP 36.6; O2SAT 98; BMI 36.6
[2023-10-30 16:26] LABS: UTC Strep Screen (Rapid) Negative (Negative)
[2023-10-30 16:27] LABS: UTC Influenza A Antigen Negative (Negative); UTC Influenza B Antigen Negative (Negative)
[2023-10-30 16:55] VITALS: BP 152/93; PULSE 90; RESP 18; TEMP 36.6; O2SAT 98
== END 2023-10-30 16:55 | disposition home or self-care (01) ==
PROVIDERS: Emergency Provider Nurse Practitioner Family; PCP Pediatrics
DX: J01.90 Acute sinusitis, unspecified (principal); R05.9 Cough, unspecified; H92.03 Otalgia, bilateral; R09.81 Nasal congestion
CPT/HCPCS: 87804; 87880; 99212; 99214; G0463

== ENCOUNTER 2025-01-24 15:00 | Emergency (ER) | payer OTHER, SELFPAY ==
[2025-01-24 15:10] VITALS: BP 163/96; PULSE 109; RESP 20; TEMP 36.9; O2SAT 95; BMI 39.9
[2025-01-24 15:11] LABS: Microscopic, Urine URINE MICROSCOPIC (MICROSCOPIC)
[2025-01-24 15:13] LABS: Appearance,Urine CLEAR (Clear); Bilirubin,Urine Negative (Negative); Blood, Urine 3+ (Negative); Color,Urine YELLOW (Yellow); Glucose,Urine (UA) Negative (Negative); Ketones,Urine Negative (Negative); Leukocyte Esterase,Urine 1+ (Negative); Nitrate,Urine Negative (Negative); PH,Urine 5.5 (5.0-8.5); Protein,Urine Negative (Negative); Specific Gravity, Urine >= 1.030 (1.005-1.030); Urobilinogen,Urine 0.2 EU/dl (0.2)
[2025-01-24 15:22] LABS: RBC,Urine Occasional #/hpf (0-3)
[2025-01-24 15:25] LABS: Bacteria,Urine Trace /lpf
--- NOTE | 2025-01-24 15:28 | ED_ITS ---
<Statement entered by Rossi George DO - 01/24/25 20:51> I was consulted by the JUDI, and we discussed the complexity of the problems being addressed. I approved the treatment and management plan for this patient's care in the emergency department, thus performing a substantive portion of the medical decision making. Rossi George DO Discharge Plan Disposition Patient Disposition: Home, Self-Care Condition: Good Prescriptions Prescriptions: New cephalexin 500 mg capsule 500 mg PO Q12H 7 Days Qty: 14 0RF No Action labetalol 200 mg tablet 200 mg PO BID azithromycin [Zithromax] 250 mg tablet 250 mg PO UD DOSE PK Qty: 6 0RF Rx Instructions: Take two (2) tablets today, then one (1) tablet days #2 thru #5 methylprednisolone 4 mg Tablets,Dose Pack 4 mg PO DIRECTED 6 Days Qty: 21 0RF Rx Instructions: Take 1 pack as directed for 6 days ndtrqbqdejkkvzv-nfmkllyry-QF [Bromfed DM] 2-30-10 mg/5 mL Syrup 5 ml PO Q6H PRN (Reason: Cough) Qty: 240 0RF guaifenesin [Mucinex] 600 mg tablet extended release 12hr 600 - 1,200 mg PO BIDP PRN (Reason: Congestion) Qty: 30 0RF Referrals Follow up/Referrals: Melo Bhagat MD [Primary Care Provider] - See instructions Jose D Dominguez MD [Referring] - See instructions Activity Restrictions/Add. Instructions Additional Instructions/Restrictions: You were seen for a threatened miscarriage. Please call your OB tomorrow to have follow up labs. Return to the ER if you have abdominal pain or heavy bleeding. Clinical Impressions Clinical Impression: Miscarriage, threatened, early , UTI (urinary tract infection) Instructions Patient Instructions: DI for Threatened Print Language Print Language: [place] Discharge ED Provider: Rossi George General Adult HPI General Chief complaint: Vaginal Bleeding Stated complaint: Pos Preg test but bleeding Time Seen by Provider: 01/24/25 15:19 Mode of Arrival: Ambulatory Source of Information: Patient Description of Symptoms (Recalled from ER Triage Doc. by RN): Patient presents to ED with positive test x1 week ago. Patient states she started to spot yesterday morning, was bleeding more heavy last night and only spotting today. Patient denies any cramping or abdomen pain at this time. History of Present Illness HPI narrative: Patient presents complaining of vaginal bleeding. She reports last menstrual period was December 23. She had a positive test around 1 week ago. She reports that the bleeding is mostly when she uses the restroom, small amount was noted on a pad today the bleeding has improved today. Denies any abdominal pain. MD complaint: vaginal bleeding in Onset (ago): day(s) (2) Location: genitals Radiation: non-radiation Severity: mild Consistency: intermittent Relieving factors: none Exacerbating factors: none Related Data Home Medications ?Medication ?Instructions ?Recorded ?Confirmed labetalol 200 mg tablet 200 mg PO BID Hypertension 12/09/22 10/30/23 Previous Rx's ?Medication ?Instructions ?Recorded azithromycin 250 mg tablet 250 mg PO UD DOSE PK #6 tabs 10/30/23 (Zithromax) bkfbvnamhpcdmyp-rzqtcdifualtrbz-XR 5 ml PO Q6H PRN Cough #240 mL 10/30/23 2 mg-30 mg-10 mg/5 mL oral syrup (Bromfed DM) guaifenesin 600 mg tablet, 600 - 1,200 mg (1 - 2 x 600 mg) PO 10/30/23 extended release 12 hr (Mucinex) BIDP PRN Congestion #30 tabs methylprednisolone 4 mg tablets in 4 mg PO DIRECTED 6 days #21 tabs 10/30/23 a dose pack cephalexin 500 mg capsule 500 mg PO Q12H 7 days #14 caps 01/24/25 Allergies Allergy/AdvReac Type Severity Reaction Status Date / Time No Known Allergies Allergy Verified 10/30/23 16:01 [facility] Disclaimer: The information contained in this section may have been updated after the patient was seen, as this information can be updated by other users. 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 , [employer] SUPERVISOR) S/P tympanic tube insertion Social History Smoking Status: Never smoker second hand exposure: Yes alcohol intake: never substance use type: denies use current occupational status: other Travel in the last 8 weeks?: None household members: family housing: house current occupational exposures/hazards: Yes Have you lived/traveled outside [place] in past 30 days?: No Contact w/someone who lives/traveled outside [place] past 30 days?: No Exposure to someone with infectious disease in past 14 days?: No Do you have a fever (greater than 100.4 F or 38 C)?: No Have you tested positive for COVID-19?: No Exposed to someone with COVID-19 in past 14 days?: No Do you have a sore throat?: No Do you have a cough?: No Do you have any weakness?: No Do you have any diarrhea?: No Are you experiencing any unusual bleeding?: No Do you have any muscle aches/pain?: No Do you have any abdominal pain?: No Are you experiencing loss of taste or smell?: No Other Medical History Have you received the Flu Vaccine for this season: No Have you received the Pneumonia Vaccine: No ROS Obtained: Yes Systems reviewed as appropriate & no additional complaints except as documented Physical Exam General General appearance: alert and in no apparent distress Head Head exam: atraumatic and normocephalic Eye Eye exam: Present normal appearance and EOMI Chest Chest inspection: Present symmetric chest wall rise Respiratory Respiratory exam: Present normal lung sounds bilaterally; Absent wheezes or stridor Cardiovascular Cardiovascular exam: Present regular rate and normal rhythm; Absent systolic murmur Abdominal Exam Abdominal exam: Present soft; Absent distention, tenderness or guarding Extremities Exam Extremities exam: Present full ROM Neurological Exam Neurological exam: Present alert and oriented X3 Psychiatric Psychiatric exam: Present normal affect and normal mood Skin Skin exam: Present warm, dry and intact Medical Decision Making Medical Records Screening: Per USPSTF and CDC recommendations, given the prevalence of disease in our region, it is our hospital?s policy to screen for HIV and viral Hepatitis for all patients aged 18 and over and those with ongoing risk factors. Sukumar Inquiry Pt receiving controlled substance: No Vital Signs: 01/24/25 15:10 01/24/25 16:04 01/24/25 16:30 Temperature 98.4 F Temperature Source Oral Pulse Rate 92 H 105 H Pulse Rate [Right Brachial] 109 H Respiratory Rate 20 Blood Pressure 137/97 H 140/95 H Blood Pressure [Right Arm] 163/96 H Blood Pressure Mean 106 Blood Pressure Mean [Right Arm] 118 Blood Pressure Source [Right Arm] Automatic Cuff Blood Pressure Position [Right Arm] Sitting 02 Sat by Pulse Oximetry 95 95 96 Oxygen Delivery Method Room Air Lab Data Lab Results 01/24/25 15:06: Urine Color Yellow, Urine Appearance Clear, Urine pH 5.5, Ur Specific [place] >= 1.030, Urine Protein Negative, Urine Glucose (UA) Negative, Urine Ketones Negative, Urine Blood 3+ A, Urine Nitrate Negative, Urine Bilirubin Negative, Urine Urobilinogen 0.2, Ur Leukocyte Esterase 1+ A, Urine RBC Occasional, Urine WBC 3-5, Ur Squamous Epith Cells 3-5, Urine Bacteria Trace 01/24/25 15:42: WBC 8.5, RBC 4.64, Hgb 12.7, Hct 38.7, MCV 83.4, MCH 27.4, MCHC 32.8, RDW 13.8, Plt Count 344, MPV 10.1, Neut % (Auto) 64.8, Lymph % (Auto) 25.4, [place] % (Auto) 5.3, Eos % (Auto) 3.8, Baso % (Auto) 0.5, Neut # (Auto) 5.5, Lymph # (Auto) 2.2, [place] # (Auto) 0.5, Eos # (Auto) 0.3, Baso # (Auto) 0.0, Sodium 137, Potassium 4.4, Chloride 104, Carbon Dioxide 26, Anion Gap 11.4, BUN 11, Creatinine 0.70, Estimated Creat Clear 217, Estimated GFR 105, Est GFR ( Amer) 127, Glucose 131 H, Calcium 9.4, Total Bilirubin 0.2, AST 30, ALT 31, Alkaline Phosphatase 64, Total Protein 7.2, Albumin 4.5, Globulin 2.7, Albumin/Globulin Ratio 1.7, HCG, Quant 8 H, Blood Type O Positive 01/24/25 15:42 01/24/25 15:42 Orders (Tests/Meds): ORDERS Category Date Time Status ABO/RH Type Stat BBK 01/24/25 15:42 Completed Beta HCG, Quant [HCG,Quantitative] Stat Lab 01/24/25 15:42 Completed CBC w/Auto Diff [Complete Blood Count Auto Diff] Stat Lab 01/24/25 15:42 Completed CMP [Comprehensive Metabolic Panel] Stat Lab 01/24/25 15:42 Completed UA [Urinalysis and Microscopic] Stat Lab 01/24/25 15:06 Completed Urine Culture Stat Micro 01/24/25 15:06 Received Medical Decision Narrative: In summary patient is a 24-year-old female who presents the emergency department for evaluation of vaginal bleeding in . Patient is hypertensive, tachycardic upon arrival, afebrile. Unremarkable physical exam. Differential diagnosis includes miscarriage, threatened miscarriage, menstruation. Initial workup will be conducted with CBC, CMP, hCG quant, Rh. Patient is Rh+, quant is at an 8. Given her low quant and no abdominal pain I do not feel transvaginal ultrasound is indicated at this time. Advised to call her OB tomorrow for follow-up and repeat hCG in 48 hours. Started on keflex for UTI. Given this patient is appropriate for discharge home at this time. Given return precautions. Critical Care Critical Care Time Critical Care Time: No
[2025-01-24 16:00] LABS: Basophils % 0.5 % (0.1-2.0); Eosinophils # 0.3 Kmm3 (0.0-0.4); Eosinophils % 3.8 % (0.1-12.0); Hematocrit 38.7 % (37.0-47.0); Hemoglobin 12.7 g/dL (12.2-16.2); Immature Granulocytes # 0.02 10^3uL; Immature Granulocytes % 0.2 %; Lymphocytes # 2.2 K/mm3 (0.7-4.5); Lymphocytes % 25.4 % (10-50); Mean Corpuscular HGB Conc 32.8 g/dL (31.8-35.4); Mean Corpuscular Hemoglobin 27.4 pg (27.0-31.2); Mean Corpuscular Volume 83.4 fl (81-99); Mean Platelet Volume 10.1 fl (7.4-10.4); Monocytes # 0.5 K/mm3 (0.1-1.0); Monocytes % 5.3 % (1.7-9.3); Neutrophils # 5.5 K/mm3 (1.8-7.8); Neutrophils % 64.8 % (37.0-80.0); Nucleated Red Blood Cells # 0 10^3/uL; Nucleated Red Blood Cells % 0 %; Platelet Count 344 K/mm3 (142-424); Red Blood Count 4.64 M/mm3 (4.20-5.40); Red Cell Distribution Width 13.8 % (11.5-17.5); Red Cell Distribution Width-SD 41.8 fL; White Blood Count 8.5 K/mm3 (4.8-10.8)
[2025-01-24 16:02] LABS: Albumin Level 4.5 g/dl (3.5-5.0); Chloride 104 mmol/L (98-107); Sodium 137 mmol/L (136-145)
[2025-01-24 16:03] LABS: Potassium 4.4 mmoL/L (3.5-5.1)
[2025-01-24 16:04] VITALS: BP 137/97; PULSE 92; O2SAT 95
[2025-01-24 16:05] LABS: Alanine Aminotransferase 31 U/L (12-78); Anion Gap 11.4 mEq/L (5-15); Aspartate Amino Transferase 30 U/L (14-36); Blood Urea Nitrogen 11 mg/dl (7-17); Carbon Dioxide 26 mmol/L (22.0-30.0); Creatinine Clearance Estimated 217 mL/min (50-200); Estimated Glomerular Filt Rate 105 ml/min (>60); GFR (African American) 127 ML/MIN (>60)
[2025-01-24 16:06] LABS: Albumin/Globulin Ratio 1.7 (1.1-1.8); Alkaline Phosphatase 64 U/L (38-126); Bilirubin,Total 0.2 mg/dl (0.2-1.3); Calcium 9.4 mg/dl (8.4-10.2); Globulin 2.7 g/dL (1.3-3.2); Glucose 131 mg/dl (74-100); Total Protein,Serum 7.2 g/dl (6.3-8.2)
[2025-01-24 16:23] LABS: HCG,Quantitative 8 mIU/ml (0-5.42)
[2025-01-24 16:30] VITALS: BP 140/95; PULSE 105; O2SAT 96
[2025-01-24 17:28] VITALS: BP 124/70; PULSE 80; RESP 18; TEMP 37.1; O2SAT 97
--- NOTE | 2025-01-27 12:21 | PC.NURSE ---
No action needed at this time per Dr. Sandhu regarding urine culture results.
== END 2025-01-24 17:30 | disposition home or self-care (01) ==
PROVIDERS: Physician Assistant; Emergency Provider Emergency Medicine; PCP Pediatrics
DX: O20.0 Threatened abortion (principal); O23.41 Unspecified infection of urinary tract in pregnancy, first trimester; Z3A.01 Less than 8 weeks gestation of pregnancy
CPT/HCPCS: 80053; 81001; 84702; 85025; 86900; 86901; 87086; 87088; 87186; 99283